=== PATIENT | male | born 1960 | race Caucasian/White ===

== ENCOUNTER 2024-12-11 10:42 | Day surgery (SDC) | payer BC ==
[~2024-12-11 10:42] MED LIST: Lactated Ringers 1,000 ML IV SCH
[2024-12-11] MEDS: Lactated Ringers 1,000 ML IV SCH (10:59)
[2024-12-11] MEDS ORDERED: Propofol 200 MG/20 ML SDV ONE (11:43)
[2024-12-11] MEDS ORDERED: Midazolam 1 MG/ML 2 ML SDV ONE (12:17)
[2024-12-11] MEDS ORDERED: fentaNYL 100 MCG/2 ML SDV ONE (12:17)
[2024-12-11 13:12] VITALS: BP 111/60; PULSE 64
== END 2024-12-11 13:41 | disposition home or self-care (01) ==
LOC: VM.SDS 10:42
PROVIDERS: ATTEND Family Medicine
DX: Z12.11 Encounter for screening for malignant neoplasm of colon (principal); D12.0 Benign neoplasm of cecum; D12.6 Benign neoplasm of colon, unspecified; Z86.0100 Personal history of colon polyps, unspecified; E78.5 Hyperlipidemia, unspecified; Z79.899 Other long term (current) drug therapy; Z85.038 Personal history of other malignant neoplasm of large intestine
CPT/HCPCS: 00811; 45380; 45385; J2250; J2704; J3010; J7120